=== PATIENT | male | born 1950 | race Caucasian/White ===

== ENCOUNTER 2021-11-15 19:14 | Inpatient (IN) | payer OTHER ==
[~2021-11-15] VITALS: Ht 182.9 cm; Wt 74.0 kg
[2021-11-15 20:33] LABS: Basophils # (auto) 0.1 10 ^3/uL (0-0.2); Basophils % (auto) 0.8 % (0.0-2.0); Eosinophils # (auto) 0.1 10 ^3/uL (0-0.8); Eosinophils % (auto) 0.3 % (0.0-7.0); Hematocrit 39.5 % (41.0-53.0); Mean Corpuscular Hemoglobin 33.2 pg (28.0-32.0); Mean Corpuscular Hgb Conc. 32.8 g/dL (32.0-36.0); Mean Corpuscular Volume 101.4 fL (80.0-100.0); Monocytes # (auto) 0.8 10 ^3/uL (0-1.3); Monocytes % (auto) 4.9 % (0.0-12.0); Neutrophils # (auto) 15.2 10 ^3/uL (1.6-8.6); Red Cell Distribution Width 13.1 % (11.8-14.3); White Blood Cell 17.3 10^3/uL (4.4-10.8)
[2021-11-15 20:49] LABS: Albumin 3.6 g/dL (3.4-5.0); Calcium 8.7 mg/dL (8.5-10.1); Magnesium 1.9 mg/dL (1.6-2.6); Potassium 4.3 mmol/L (3.5-5.1)
[2021-11-15 20:55] LABS: Lactic Acid w/Reflex 5.4 mmol/L (0.4-2.0)
[2021-11-15 20:59] LABS: BUN/Creatinine Ratio 15.6; Bilirubin, Total 0.3 mg/dL (0.2-1.0)
[2021-11-15] MEDS ORDERED: SODIUM CHLORIDE 0.9% 1,000 ML IV ONE (22:15)
[2021-11-15] MEDS ORDERED: DEXTROSE (50%) 50ML SYRG IV PRN (22:30)
[2021-11-15] MEDS ORDERED: ACETAMINOPHEN 325 MG TAB PO PRN (22:30)
[2021-11-15] MEDS ORDERED: TEMAZEPAM 15 MG CAP PO PRN (22:30)
[2021-11-15] MEDS ORDERED: MORPHINE SULFATE INJ 2 MG/ml SYRG IV PRN (22:30)
[2021-11-15] MEDS ORDERED: cefTRIAXone 1GM/50ML D5W 50 ML IV ONE (22:30)
[2021-11-15] MEDS ORDERED: ONDANSETRON HCL 4 MG/2 ML VIAL IV PRN (22:30)
[2021-11-15 22:48] LABS: Urine Bacteria NONE SEEN /hpf (None Seen); Urine Blood Negative /uL (Negative); Urine Specific Gravity 1.008 (1.001-1.035); Urine WBC <1 /hpf (0 - 3)
[2021-11-15 23:11] LABS: INR 0.92 (0.9-1.15); Partial Thromboplastin Time 29.4 sec (24.6-33.4)
[2021-11-16] MEDS: ACCU-CHEK COMFORT CURVE STRIP VI SCH ×5 (00:04→23:26)
[2021-11-16] MEDS: InsuLIN REG 1unit/0.01ml Soln (100units/ml) SC SCH ×5 (00:08→23:28)
[2021-11-16] MEDS: HYDROcodone-ACET 5/325MG TAB PO PRN (01:36)
[2021-11-16 04:47] LABS: Basophils # (auto) 0.1 10 ^3/uL (0-0.2); Eosinophils # (auto) 0.1 10 ^3/uL (0-0.8); Hematocrit 34.7 % (41.0-53.0); Hemoglobin 11.6 g/dL (13.5-17.5); Lymphocytes # (auto) 1.4 10 ^3/uL (0.4-5.4); Lymphocytes % (auto) 12.9 % (10.0-50.0); Mean Corpuscular Hemoglobin 33.9 pg (28.0-32.0); Mean Corpuscular Hgb Conc. 33.5 g/dL (32.0-36.0); Mean Corpuscular Volume 101.1 fL (80.0-100.0); Monocytes # (auto) 1.1 10 ^3/uL (0-1.3); Monocytes % (auto) 10.2 % (0.0-12.0); Neutrophils # (auto) 8.3 10 ^3/uL (1.6-8.6); Neutrophils % (auto) 74.9 % (37.0-80.0); Red Blood Cells 3.43 10^6/uL (4.5-5.90); Red Cell Distribution Width 12.7 % (11.8-14.3); White Blood Cell 11.1 10^3/uL (4.4-10.8)
[2021-11-16 05:03] LABS: Calcium 8.1 mg/dL (8.5-10.1); Potassium 4.3 mmol/L (3.5-5.1)
[2021-11-16] MEDS: LEVOTHYROXINE SODIUM 25 MCG TAB PO SCH (07:09)
[2021-11-16] MEDS: cefTRIAXone 1GM/50ML D5W 50 ML IV SCH (09:03)
[2021-11-16] MEDS: PANTOPRAZOLE 40 MG TAB PO SCH (10:12)
[2021-11-16] MEDS: LISINOPRIL 5 MG TAB PO SCH (10:13)
[2021-11-16] MEDS ORDERED: chlordiazePOXIDE HCL 5 MG CAP PO PRN (17:00)
[2021-11-16] MEDS: DONEPEZIL HYDROCHLORIDE 5 MG TAB PO SCH (22:51)
[2021-11-16] MEDS ORDERED: PREG75CA PO (22:54)
[2021-11-16] MEDS ORDERED: FLUT1AER3 IN ×2 (22:54→22:55)
[2021-11-16] MEDS ORDERED: METF-370 PO (22:54)
[2021-11-16] MEDS ORDERED: INSU100I61 SC (22:54)
[2021-11-16] MEDS ORDERED: INSLANTI SC (22:54)
[2021-11-16] MEDS ORDERED: ASPI1TAB20 PO (22:55)
[2021-11-16] MEDS ORDERED: LISI2.5T47 PO (22:55)
[2021-11-16] MEDS ORDERED: FOLITAB22 PO (22:55)
[2021-11-16] MEDS ORDERED: THIA100T26 PO (22:55)
[2021-11-16] MEDS ORDERED: LEV100T PO (22:55)
[2021-11-16] MEDS ORDERED: DONE1TAB88 PO (22:55)
[2021-11-16] MEDS ORDERED: CITA-73 PO (22:55)
[2021-11-16] MEDS ORDERED: GABA-339 PO (22:55)
[2021-11-16] MEDS ORDERED: CYAN-17 PO (22:55)
[2021-11-17] MEDS: ACCU-CHEK COMFORT CURVE STRIP VI SCH ×4 (06:00→23:46)
[2021-11-17] MEDS: LEVOTHYROXINE SODIUM 25 MCG TAB PO SCH (06:56)
[2021-11-17] MEDS: InsuLIN REG 1unit/0.01ml Soln (100units/ml) SC SCH ×4 (06:57→23:49)
[2021-11-17 09:00] VITALS: BP 155/74
[2021-11-17] MEDS: cefTRIAXone 1GM/50ML D5W 50 ML IV SCH (10:54)
[2021-11-17] MEDS: HYDROcodone-ACET 5/325MG TAB PO PRN ×2 (10:56→19:03)
[2021-11-17] MEDS: LISINOPRIL 5 MG TAB PO SCH (10:56)
[2021-11-17] MEDS: PANTOPRAZOLE 40 MG TAB PO SCH (10:56)
[2021-11-17] MEDS ORDERED: MIDAZOLAM HCL 2MG/2ML 2ml VIAL (1mg/ml) ONE ×2 (11:23)
[2021-11-17] MEDS ORDERED: PROPOFOL 10 MG/ML 20 ML IV ONE (11:23)
[2021-11-17] MEDS ORDERED: SODIUM CHLORIDE LOCK 10 ML ONE (11:23)
[2021-11-17] MEDS ORDERED: ONDANSETRON HCL 4 MG/2 ML VIAL ONE (11:23)
[2021-11-17] MEDS ORDERED: MORPHINE SULF PF 5 MG/10 ML VIAL ONE (11:23)
[2021-11-17] MEDS ORDERED: EPINEPHrine HCL 1 MG/1 ML AMP ONE (11:23)
[2021-11-17] MEDS ORDERED: fentaNYL CITRATE 100 MCG/2 ML VL ONE (11:23)
[2021-11-17] MEDS ORDERED: TRANEXAMIC ACID 0 ML ONE (12:40)
[2021-11-17] MEDS ORDERED: LIDOCAINE 1%-Mpf/Epinephrine 1:200,000 ONE (12:40)
[2021-11-17] MEDS ORDERED: HYDROmorphone HCL 2 MG/ML VL/or syr IV PRN ×2 (14:15)
[2021-11-17] MEDS ORDERED: MORPHINE SULFATE 4 MG/ML SYR/VIAL IV PRN (14:15)
[2021-11-17] MEDS ORDERED: ACCU-CHEK COMFORT CURVE STRIP VI ONE (14:15)
[2021-11-17] MEDS ORDERED: ONDANSETRON HCL 4 MG/2 ML VIAL IV PRN (14:15)
[2021-11-17 16:52] VITALS: BP 103/50
[2021-11-17 22:00] VITALS: BP 151/70
[2021-11-17] MEDS ORDERED: INSULIN LANTUS (GLARGINE) 1 /0.01ml (100units/ml) SC SCH (22:00)
[2021-11-17] MEDS: DONEPEZIL HYDROCHLORIDE 5 MG TAB PO SCH (22:31)
[2021-11-18] MEDS: HYDROcodone-ACET 5/325MG TAB PO PRN (04:30)
[2021-11-18 05:00] VITALS: BP 118/68
[2021-11-18] MEDS: ACCU-CHEK COMFORT CURVE STRIP VI SCH ×2 (06:00→11:57)
[2021-11-18] MEDS: InsuLIN REG 1unit/0.01ml Soln (100units/ml) SC SCH ×2 (06:00→12:03)
[2021-11-18] MEDS: LEVOTHYROXINE SODIUM 25 MCG TAB PO SCH (06:46)
[2021-11-18 07:26] LABS: Basophils # (auto) 0.1 10 ^3/uL (0-0.2); Eosinophils # (auto) 0 10 ^3/uL (0-0.8); Lymphocytes # (auto) 1.1 10 ^3/uL (0.4-5.4)
[2021-11-18 07:31] LABS: Basophils % (auto) 0.3 % (0.0-2.0); Hematocrit 30.1 % (41.0-53.0); Hemoglobin 10.3 g/dL (13.5-17.5); Lymphocytes % (auto) 5.2 % (10.0-50.0); Mean Corpuscular Hemoglobin 34.9 pg (28.0-32.0); Mean Corpuscular Volume 102.5 fL (80.0-100.0); Monocytes % (auto) 9.6 % (0.0-12.0); Neutrophils # (auto) 18.2 10 ^3/uL (1.6-8.6); Neutrophils % (auto) 84.9 % (37.0-80.0); Red Blood Cells 2.94 10^6/uL (4.5-5.90); Red Cell Distribution Width 12.9 % (11.8-14.3); White Blood Cell 21.4 10^3/uL (4.4-10.8)
[2021-11-18 07:36] LABS: Potassium 4.2 mmol/L (3.5-5.1)
[2021-11-18 07:46] LABS: BUN/Creatinine Ratio 27.4; Calcium 8.9 mg/dL (8.5-10.1)
[2021-11-18 08:00] VITALS: BP 142/58
[2021-11-18] MEDS: cefTRIAXone 1GM/50ML D5W 50 ML IV SCH (09:11)
[2021-11-18] MEDS: LISINOPRIL 5 MG TAB PO SCH (09:12)
[2021-11-18] MEDS ORDERED: FOLIC ACID 1 MG in D5W 5% 50 ML INJ SCH (10:00)
[2021-11-18] MEDS ORDERED: THIAMINE 100mg/ml INJ (200mg/2ml VIAL) IV SCH (10:00)
[2021-11-18] MEDS ORDERED: FOLIC ACID 1 MG, MULTIPLE VITAMIN 10 ML, MAGNESIUM SULF SDV 50% 8 MEQ, THIAMINE INJ 100... INJ SCH ×5 (12:00)
[2021-11-18 13:00] VITALS: BP_SYST 142; BP_SYST 147; BP_DIAS 58; BP_DIAS 59
[2021-11-18 13:56] VITALS: BP 142/58
[2021-11-18] MEDS ORDERED: GABAPENTIN 300 MG CAP PO SCH (22:00)
[2021-11-19] MEDS ORDERED: ASPirin-EC 81 mg tab PO SCH (10:00)
[2021-11-19] MEDS ORDERED: ENOXAPARIN SOD 40 MG/0.4 ML SYRINGE SC SCH (10:00)
[2021-11-19] MEDS ORDERED: CITALOPRAM HYDROBR 20 MG TAB PO SCH (10:00)
== END 2021-11-18 17:07 | DRG 481 ==
LOC: EDBD 19:14 → ER 19:14 → OVERFLOW 22:34 → WEST WING 11-16 21:29
PROVIDERS: ADMIT Nurse Practitioner; ATTEND Hospitalist
PROC: 0QS736Z Reposition Left Upper Femur with Intramedullary Internal Fixation Device, Percutaneous Approach (ICD-10-PCS; principal; 2021-11-17 13:03)
DX: S72.142A Displaced intertrochanteric fracture of left femur, initial encounter for closed fracture (principal); J98.11 Atelectasis; D72.829 Elevated white blood cell count, unspecified; E03.9 Hypothyroidism, unspecified; E11.9 Type 2 diabetes mellitus without complications; E86.0 Dehydration; F03.90 Unspecified dementia, unspecified severity, without behavioral disturbance, psychotic disturbance, mood disturbance, and anxiety; R29.6 Repeated falls; S01.81XA Laceration without foreign body of other part of head, initial encounter; Z20.822 Contact with and (suspected) exposure to COVID-19; Y90.9 Presence of alcohol in blood, level not specified; H26.9 Unspecified cataract; R79.89 Other specified abnormal findings of blood chemistry; F10.129 Alcohol abuse with intoxication, unspecified; X58.XXXA Exposure to other specified factors, initial encounter; Y93.89 Activity, other specified; Y92.89 Other specified places as the place of occurrence of the external cause; Y99.8 Other external cause status; Z79.4 Long term (current) use of insulin
CPT/HCPCS: 36415; 70450; 70486; 71045; 72125; 73130; 73502; 74176; 76000; 80048; 80053; 80320; 81001; 82550; 82962; 83605; 83690; 83735; 84484; 85025; 85610; 85730; 86850; 86900; 86901; 87040; 93005; 93306; 96365; 96366; 96375; 97110; 97116; 97163; 97530; 99291; G0378; J0171; J0696; J1815; J2250; J2405; J2704; J7060